=== PATIENT | male | born 1990 | race Caucasian/White ===

== ENCOUNTER → 2017-04-03 08:47 | Outpatient (CLI) | payer BC, SELFPAY ==
--- NOTE | 2017-04-03 08:54 | MR_ITS ---
MR head/brain wo/w con HISTORY: Seizure disorder, epilepsy ITS.REASON: SEIZURE, EPILEPTIC ORDERING PHYSICIAN: Angus Aguilera, PhD PATIENT AGE: 27 years COMPARISON: CT head 01/21/2017 TECHNIQUE: Standard multiplanar multiecho sequences are performed without and with gadolinium enhancement . FINDINGS: No midline shift or mass effect is evident. No enhancing lesions. No evidence of acute infarction. No intra or extra-axial mass or hemorrhage. The cerebellopontine angles, cerebellum, and brainstem are unremarkable. The hippocampal gyri are seen unremarkable and the temporal horns are symmetric. No evidence of cerebellar ectopia. The pituitary, optic chiasm, and corpus callosum have an unremarkable appearance. There is normal redding-white matter differentiation. No sinus air-fluid level or mastoid effusion. No large aneurysms. Small aneurysms may not be detected by this technique and may be better evaluated with MRA if clinically warranted. IMPRESSION: Negative MRI of the brain without and with contrast
== END ==
PROVIDERS: Visit Provider Psychiatry & Neurology Neurology
DX: G40.909 Epilepsy, unspecified, not intractable, without status epilepticus (principal)
CPT/HCPCS: 70553; 95816; A9576

== ENCOUNTER → 2019-09-17 14:09 | Outpatient (CLI) | payer BC, SELFPAY | PROVIDERS: PCP Physician Assistant; Visit Provider Physician Assistant | DX: R06.83 Snoring (principal); R53.1 Weakness | CPT/HCPCS: G0399 ==

== ENCOUNTER 2021-03-03 10:51 | Emergency (ER) | payer BC, SELFPAY ==
[2021-03-03 11:15] VITALS: BP 127/76; PULSE 122; RESP 22; TEMP 38.4; O2SAT 98; BMI 32.5
--- NOTE | 2021-03-03 11:49 | HMH.EDUTC ---
[facility] [place] Clinical Impression: Strep throat Disposition: Home, Self-Care Condition on Discharge: Good Instructions: Strep Throat, DI for Strep Throat, Methylprednisolone, Azithromycin Additional Instructions: *Monitor Temp, Over the counter Motrin or Tylenol as directed/as needed Tylenol every 4 hours and Motrin every 6 hours (as long as your family doctor has told you that you can take it) for fever or pain. and straight to ER if unable to lower temp less than 101.0 after medication given *Warm salt water gargles may help to soothe the throat *Throat Lozenges *Warm fluids like tea with honey may help to soothe the throat *Sleep elevated *Humidifier/Vaporizer *Bromfed may cause drowsiness. Know how it effects you (your child) before driving, caring for small child, or sending your child to school. Not other antihistamines/allergy medications while taking bromfed *If you did not take Penicillin shot or was unable to, start taking antibiotic immediately and make sure that you take it for the FULL length of time although you should start to feel better in 24-48 hours *change toothbrush and toothpaste 24-48 hours after starting to take antibiotics so you do not reinfect yourself Monitor Temp. Tylenol and/or Ibuprofen as needed. ER if fever is no less than 101 despite alternating Tylenol and Ibuprofen * Encourage fluids, water, Gatorade, powerade, pedialyte if infant/toddler/or child *Cold fluids, popsicles and ice cream may feel good on his throat Follow up IMMEDIATELY for new or worsening symptoms or no Noticeable improvement over the next 48-72 hours. 911 for difficulty breathing or swallowing You were tested for today for COVID19 your test result should be back in the next 24-48 hours, you may check the [facility] my Health portal for your results if you have trouble logging on or seeing your results you may call You was given a handout with instructions for Self Quarantine and Self isolation for while you wait on test results and what to do if they are positive If you are positive the Health Dept will be contacting you also Make sure to take your Vitamins Vit. C Vit D and Zinc if you can take them Prescriptions: guaiFENesin [Mucinex 600mg tablet] 1 - 2 tab PO Q12HP PRN #20 tab PRN Reason: Congestion Transmission Status: Pending to [id number] methylPREDNISolone [Medrol 4mg tab] 4 mg PO DIRECTED #21 tab Transmission Status: Pending to [id number] Azithromycin [Z-Radhames 250mg Tab] 250 mg PO DIRECTED #6 tab Transmission Status: Pending to [id number] Referrals: Provider,Referral, MD [Primary Care Provider] - As needed Forms: Work/School Release Time of Disposition: 12:27 Medical Decision Making - Konrad Inquiry Pt receiving controlled substance: No Konrad was queried for this patient: No Vital Signs: 03/03/21 11:15 Temperature 101.1 F H Temperature Source Oral Pulse Rate [Right Brachial] 122 H Respiratory Rate 22 Blood Pressure [Right Arm] 127/76 Blood Pressure Mean [Right Arm] 93 Blood Pressure Source [Right Arm] Automatic Cuff Blood Pressure Position [Right Arm] Sitting 02 Sat by Pulse Oximetry 98 Oxygen Delivery Method Room Air - Lab Data Lab results reviewed: Yes: I reviewed the patient's lab results. Lab Results 03/03/21 11:36: Influenza Type A Ag Negative, Influenza Type B Ag Negative 03/03/21 12:05: Strep Scn Rapid Clinic Positive A Orders (Tests/Meds): ED MEDICATIONS Discontinued Medications Generic Name Dose Route Start Last Admin Trade Name Red PRN Reason Stop Dose Admin Acetaminophen 650 mg 03/03/21 11:52 03/03/21 11:55 Acetaminophen 325mg Tab PO 03/03/21 11:53 650 mg ONCE ONE Administration ORDERS Category Date Time Status Covid-19 Nasal PCR ([facility]) Routine Lab 03/03/21 11:36 Received Strep Screen Confirmation Stat Micro 03/03/21 12:05 Received [facility] [place] HPI - General Stated complaint: fever, body aches, chills Time
[2021-03-03 12:23] LABS: UTC Influenza A Antigen Negative (Negative); UTC Influenza B Antigen Negative (Negative)
[2021-03-03 12:24] LABS: UTC Strep Screen (Rapid) Positive (Negative)
[2021-03-03 12:30] VITALS: BP 127/76; PULSE 122; RESP 22; TEMP 37.7; O2SAT 98
--- NOTE | 2021-03-03 20:09 | PC.NURSE ---
PATIENT NOTIFIED OF POSITIVE COVID TEST AT THIS TIME
== END 2021-03-03 12:32 | disposition home or self-care (01) ==
PROVIDERS: Emergency Provider Nurse Practitioner
DX: J02.0 Streptococcal pharyngitis (principal); U07.1 COVID-19
CPT/HCPCS: 87804; 87880; 99203; C9803; G0463; U0003; U0005

== ENCOUNTER → 2022-11-16 13:02 | Outpatient (CLI) | payer BC, SELFPAY | PROVIDERS: PCP Physician Assistant; Visit Provider Physician Assistant | DX: R53.83 Other fatigue (principal) | CPT/HCPCS: G0399 ==

== ENCOUNTER 2024-03-09 13:21 | Outpatient (CLI) | payer BC, SELFPAY ==
[2024-03-09 13:41] LABS: Basophils # 0.1 K/mm3 (0-0.2); Basophils % 0.8 % (0.1-2.0); Eosinophils # 0.2 K/mm3 (0.0-0.4); Eosinophils % 2.2 % (0.1-12.0); Hematocrit 47.5 % (42.0-52.0); Hemoglobin 16.5 g/dL (14.1-18.0); Lymphocytes # 2.4 K/mm3 (0.7-4.5); Lymphocytes % 29.9 % (10-50); Mean Corpuscular HGB Conc 34.7 g/dL (31.8-35.4); Mean Corpuscular Hemoglobin 32.2 pg (27.0-31.2); Mean Corpuscular Volume 92.8 fl (80-94); Mean Platelet Volume 10.3 fl (7.4-10.4); Monocytes # 0.6 K/mm3 (0.1-1.0); Monocytes % 7.8 % (1.7-9.3); Neutrophils # 4.6 K/mm3 (1.8-7.8); Neutrophils % 58.9 % (37.0-80.0); Platelet Count 334 K/mm3 (142-424); Red Blood Count 5.12 M/mm3 (4.60-6.20); Red Cell Distribution Width 12.4 % (11.5-17.5); White Blood Count 7.9 K/mm3 (4.8-10.8)
[2024-03-10 07:13] LABS: Prolactin 10.5 ng/mL (3.9-22.7); Sex Hormone Binding Globulin 12.3 nmol/L (16.5-55.9)
[2024-03-10 08:14] LABS: Estradiol 44.1 pg/mL (7.6-42.6); FSH <0.3 mIU/mL (1.5-12.4); LH <0.3 mIU/mL (1.7-8.6); Testosterone,Total 980 ng/dL (264-916)
[2024-03-18 08:13] LABS: Dihydrotestosterone DHT 68 ng/dL (.)
== END 2024-03-09 23:59 | disposition home or self-care (01) ==
LOC: LAB 13:22
PROVIDERS: PCP Physician Assistant; Visit Provider Urology
DX: R35.0 Frequency of micturition (principal)
CPT/HCPCS: 36415; 82626; 82670; 83001; 83002; 84146; 84270; 84403; 85025

== ENCOUNTER 2024-05-18 13:44 | Outpatient (CLI) | payer BC, SELFPAY ==
[2024-05-18 14:36] LABS: Basophils # 0.1 K/mm3 (0-0.2); Basophils % 0.7 % (0.1-2.0); Eosinophils # 0.1 K/mm3 (0.0-0.4); Eosinophils % 1.7 % (0.1-12.0); Hematocrit 49.1 % (42.0-52.0); Hemoglobin 16.7 g/dL (14.1-18.0); Lymphocytes # 2.1 K/mm3 (0.7-4.5); Lymphocytes % 25.8 % (10-50); Mean Corpuscular Hemoglobin 31.8 pg (27.0-31.2); Mean Corpuscular Volume 93.5 fl (80-94); Mean Platelet Volume 10.5 fl (7.4-10.4); Monocytes # 0.6 K/mm3 (0.1-1.0); Monocytes % 7.2 % (1.7-9.3); Neutrophils # 5.2 K/mm3 (1.8-7.8); Neutrophils % 64.4 % (37.0-80.0); Platelet Count 332 K/mm3 (142-424); Red Blood Count 5.25 M/mm3 (4.60-6.20); Red Cell Distribution Width 12.2 % (11.5-17.5); White Blood Count 8.1 K/mm3 (4.8-10.8)
[2024-05-19 12:11] LABS: Sex Hormone Binding Globulin 16.4 nmol/L (16.5-55.9); Testosterone,Total 449 ng/dL (264-916)
== END 2024-05-18 23:59 | disposition home or self-care (01) ==
LOC: LAB 13:45
PROVIDERS: PCP Physician Assistant; Visit Provider Urology
DX: R53.83 Other fatigue (principal); R35.0 Frequency of micturition; E29.1 Testicular hypofunction
CPT/HCPCS: 36415; 84270; 84403; 85025

== ENCOUNTER 2024-11-16 13:20 | Outpatient (CLI) | payer BC, SELFPAY ==
--- OUTSIDE RECORDS SUMMARY | 2024-11-16 13:25 | XMS_ITS | Clinical Summary ---
Author Organization [facility] Address [address] [place] [id number] Phone [email or web address] Care Team Providers Care Site Medical Director Name Role Phone Eveline Waters Primary Care Provider [phone] Allergies No known active allergies Medications lamoTRIgine (LaMICtal) 200 MG tablet Take 200 mg by mouth 1 (one) time each day. Active desvenlafaxine (PRISTIQ) 100 MG 24 hr tablet Take 100 mg by mouth 1 (one) time each day. Do not crush, chew, or split. Active zonisamide (ZONEGRAN) 50 MG capsule Take 50 mg by mouth 1 (one) time each day. Active ibuprofen (MOTRIN) 600 MG tabletIndicati ons:Knee strain, right, subsequent encounter Take 1 tablet (600 mg total) by mouth every 8 (eight) hours if needed for mild pain. 90 tablet 0 Active Dexamethasone Sodium Phosphate 20 MG/5ML solutionIndica tions:Knee strain, right, subsequent encounter 1 application by Iontophoresis route if needed (PT). 1 vial 0 Active Active Problems Problem Noted Date Diagnosed Date Blood pressure check 03/21/2024 Social History Tobacco Use Types Packs/Day Years Used Date Smoking Tobacco: Every Day Cigarettes Smokeless Tobacco: Never Intimate Partner Violence Answer Date R ecorded Insults You Not on file 06/07/2020 Threatens You Not on file 06/07/2020 Screams at You Not on file 06/07/2020 Physically Hurt Not on file 06/07/2020 Intimate Partner Violence Score Not on file 06/07/2020 Depression Answer Date Recorded PHQ-9 Total Score 0 04/17/2019 Stress Answer Date Recorded Stress in your Life Not on file 12/30/2023 Dealing with Stress 3 12/30/2023 Sex and Gender Information Value Date Recorded Sex Assigned at Not on file Legal Sex Male 7:59 AM CDT Gender Identity Not on file Sexual Orientation Not on file Last Filed Vital Signs Vital Sign Reading Time Taken Comments Blood Pressure 134/89 03/21/2024 6:09 PM EST Pulse 99 03/21/2024 6:09 PM EST Temperature 36.9 C (98.5 F) 12/31/2022 9:05 PM EST Respiratory Rate 16 12/31/2022 9:05 PM EST Oxygen Saturation 96% 12/31/2022 9:05 PM EST Inhaled Oxygen Concentration - - Weight 104 kg (230 lb) 12/31/2022 9:05 PM EST Height 177.8 cm (5' 10 ) 12/31/2022 9:05 PM EST Body Mass Index 33 12/31/2022 9:05 PM EST Plan of Treatment Health Maintenance Due Date Last Done Comments Dental Cleaning/Exam 1990 HIV Screening 1990 Hepatitis C Screening 1990 Polio Immunization (2 of 3 - 4-dose series) 11/04/1995 10/07/1995 Hepatitis B Immunization (2 of 3 - 3-dose series) 11/06/2001 10/09/2001 HPV Immunization (1 - Male 3 -dose series) 2005 Annual Preventive Exam 01/22/2008 Hep B Infection Screening - Triple Screen 01/22/2008 Pneumococcal Immunization (1 of 2 - PCV) 2009 Tetanus Diphtheria and Pertu ssis Immunization (1 - Tdap) 2009 Covid-19 Immunization (1 - 2 25 season) 2024 Influenza Immunization (#1) 2024 11/26/2017 HIB Immunization Aged Out No longer e ligible based on patient's age to complete this topic Hepatitis A Immunization Aged Out No longer eligible based on patient's age to complete this topic Varicella Immunization Aged Out No lo nger eligible based on patient's age to complete this topic Insurance OPT OUT NO COPAY NB Care Teams Site Medical Director Relationship Specialty Start Date End Date Eveline Waters [address] [facility] [address] [facility] [place] [address] PCP - General Family Medicine 04/09/19
--- OUTSIDE RECORDS SUMMARY | 2024-11-16 13:25 | XMS_ITS | Clinical Summary ---
Author Organization [facility] Address [address] [place] [address] Care Team Providers Care Import Coordinator Name Role Phone Unavailable Primary Care Provider Unavailabl e Family History Medical History Relation Name Comments Cataracts Other 1 Cardiac disorder Other 2 Diabetes Other 3 Hypertension Other 4 Other cancer Other 5 Relation Name Status Comments Other 1 Other 2 Other 3 Other 4 Other 5 Social History Tobacco Use Types Packs/Day Years Used Date Smoking Tobacco: Every Day Alcohol Use Standard Drinks/Week Comments No 0 (1 standard drink = 0.6 oz pur e alcohol) Sex and Gender Information Value Date Recorded Sex Assigned at Not on file Legal Sex Male 8:37 PM EDT Gender Identity Not on file Sexual Orientation Not on file Last Filed Vital Signs Vital Sign Reading Time Taken Comments Blood Pressure 124/82 05/28/2017 1:41 PM EDT Pulse - - Temperature - - Respiratory Rate - - Oxygen Saturation - - Inhaled Oxygen Concentration - - Weight 99.6 kg (219 lb 9.3 oz) 05/28/2017 1:41 P M EDT Height 180.3 cm (5' 11 ) 05/28/2017 1:41 PM EDT Body Mass Index 30.62 05/28/2017 1:41 PM EDT Plan of Treatment Not on file
--- OUTSIDE RECORDS SUMMARY | 2024-11-16 13:25 | XMS_ITS | Clinical Summary ---
Author Organization [facility] Address [address] [place] [id number] Care Team Providers Care Inspector [employer] Name Role Phone Provider, No Known Primary Care Provider Unavail able Social History Tobacco Use Types Packs/Day Years Used Date Smoking Tobacco: Never Assessed Abuse Screen Answer Date Recorded Unsafe at Home or Work/School Not on file Feels Threatened by Someone? Not on file 12/2022 Does Anyone Keep You from Co ntacting Others or Doint Things Outside the Home? Not on file 12/05/2022 Physical Sign of Abuse Present Not on file 1 Housing Stability Answer Date Recorded Current Living Arrangements Not on file 11/25 Potentially Unsafe Housing Conditions Not on geno e 12/05/2022 Family and Community Support Answer Kevin e Recorded Help with Day-to-Day Activities Not on file 12/05/2022 Lonely or Isolated Not on file 12/05/2022 Employment Answer Date Recorded Do you want help finding or keeping work or a nixon b? Not on file 12/05/2022 Disabilities Answer Date Recorded Concentrating, Remembering, or Making Decisions Difficulty Not on file 12/05/2022 Doing Errands Independently Difficulty Not on fi le 12/05/2022 Education Answer Date Recorded Help with school or training? Not on file Preferred Language Not on file 12/05/2022 Sex and Gender Information Value Date Recorded Sex Assigned at Not on file Legal Sex Male 6:16 PM EDT Gender Identity Not on file Sexual Orientation Not on file Plan of Treatment Health Maintenance Due Date Last Done Comments ANNUAL PHYSICAL 1990 HEPATITIS C SCREENING 1990 TDAP/TD VACCINES (1 - Tdap) 2009 INFLUENZA VACCINE 09/25/2024 Pneumococcal Vaccine 0-49 Aged Out No longer eligible based on patient's age to complete this topic Care Teams Inspector [employer] Relationship Specialty Start Date End Date Provider, [place] [address] PCP - General 12/06/14
[2024-11-16 13:38] LABS: Hematocrit 45.6 % (42.0-52.0); Hemoglobin 15.8 g/dL (14.1-18.0); Immature Granulocytes % 0.1 %; Mean Corpuscular HGB Conc 34.6 g/dL (31.8-35.4); Mean Corpuscular Hemoglobin 32.0 pg (27.0-31.2); Mean Corpuscular Volume 92.3 fl (80-94); Nucleated Red Blood Cells % 0 %; Platelet Count 332 K/mm3 (142-424); Red Blood Count 4.94 M/mm3 (4.60-6.20); Red Cell Distribution Width-SD 41.8 fL; White Blood Count 7.8 K/mm3 (4.8-10.8)
[2024-11-17 08:40] LABS: Testosterone,Total 195 ng/dL (264-916)
== END 2024-11-16 23:59 | disposition home or self-care (01) ==
LOC: LAB 13:21
PROVIDERS: PCP Physician Assistant; Visit Provider Urology
DX: N40.0 Benign prostatic hyperplasia without lower urinary tract symptoms (principal); R53.83 Other fatigue
CPT/HCPCS: 36415; 84270; 84403; 85025